=== PATIENT | female | born 1995 | race Caucasian/White ===

== ENCOUNTER → 2022-03-13 10:45 | Observation (INO) ==
[2022-03-13 09:54] LABS: Bilirubin,Urine Negative (Negative); Blood,Urine Negative (Negative); Clarity,Urine Clear (Clear); Color,Urine Colorless (Yellow); Glucose,Urine (UA) Normal (Normal); Ketones,Urine Negative (Negative); Leukocyte Esterase,Urine Negative (Negative); Nitrite,Urine Negative (Negative); Protein,Urine Negative (Neg-Trace); Specific Gravity,Urine 1.008 (1.010-1.025); Urobilinogen,Urine Normal (Normal)
[2022-03-13 09:56] VITALS: BP 132/74; PULSE 99; TEMP 98.4
[2022-03-13 10:00] LABS: Basophils % 0.3 %; Eosinophils # 0.3 K/mcL (0.0-0.6); Eosinophils % 3.1 %; Hematocrit 35.5 % (35.3-44.9); Immature Granulocytes % 0.8 % (0-4); Lymphocytes # 1.8 K/mcL (0.6-4.6); Lymphocytes % 19.8 %; Mean Corpuscular HGB Conc 33.8 g/dL (31.6-35.5); Mean Corpuscular Hemoglobin 30.8 pg (28.0-33.3); Mean Corpuscular Volume 91.3 fL (83.0-100.0); Mean Platelet Volume 12.2 fL (9.4-12.4); Monocytes # 0.9 K/mcL (0.0-1.3); Monocytes % 9.7 %; Neutrophils # 5.9 K/mcL (1.6-8.9); Platelet Count 244 K/mcL (140-400); Red Blood Count 3.89 M/mcL (3.82-4.97); Red Cell Distribution Width 13.1 % (11.5-14.5); Segmented Neutrophils % 66.3 %; White Blood Count 8.8 K/mcL (4.3-11.1)
[2022-03-13 10:06] LABS: Protein/Creatinine Ratio,Urine 0.18 mg/mg (0.00-0.20)
[2022-03-13 10:17] LABS: Alanine Aminotransferase 17 Units/L (7-52); Aspartate Amino Transferase 15 Units/L (13-39); BUN/Creatinine Ratio 13 (6-26); Blood Urea Nitrogen 7 mg/dL (6-20); Lactate Dehydrogenase 141 Units/L (140-271); Uric Acid 3.9 mg/dL (2.3-7.6); eGFR For African Americans > 60 (> 60); eGFR For Non-African Americans > 60 (> 60)
== END | disposition home or self-care (01) ==
LOC: 1NENULAB
PROVIDERS: ADMIT Obstetrics & Gynecology; ATTEND Obstetrics & Gynecology

== ENCOUNTER 2022-05-04 15:31 | Inpatient (IN) ==
[2022-05-04] MEDS ORDERED: Azithromycin 500 MG in 0.9 % Sodium Chloride 250 ML IVPB PRN (15:32)
[2022-05-04] MEDS ORDERED: Metoclopramide 10 MG/2 ML VIAL IVP PRN (15:32)
[2022-05-04] MEDS ORDERED: Lidocaine 1% 20 ML MDV INFILT PRN (15:32)
[2022-05-04] MEDS ORDERED: Naloxone 0.4 MG/ML INJ IVP PRN (15:32)
[2022-05-04] MEDS ORDERED: Famotidine 20 MG/2 ML VIAL IVP PRN (15:32)
[2022-05-04] MEDS ORDERED: Ondansetron 4 MG/2 ML VIAL IVP PRN (15:32)
[2022-05-04] MEDS ORDERED: *HR* Nalbuphine 10 MG/ML AMPUL IV PRN (15:32)
[2022-05-04 15:59] LABS: Amphetamine Screen,Urine Negative ng/mL (Cutoff=1000); Barbiturate Screen,Urine Negative ng/mL (Cutoff=200); Benzodiazepines Screen,Urine Negative ng/mL (Cutoff=200); Cannabinoid Screen,Urine Negative ng/mL (Cutoff = 50); Cocaine Screen,Urine Negative ng/mL (Cutoff= 300); Opiate Screen,Urine Negative ng/mL (Cutoff=300); Phencyclidine Screen,Urine Negative ng/mL (Cutoff=25)
[2022-05-04 16:04] LABS: Creatinine,Urine 27 mg/dL
[2022-05-04] MEDS: Ringers Solution, Lactated 1,000 ML IVC SCH ×2 (16:05→18:35)
[2022-05-04 16:09] LABS: Alanine Aminotransferase 22 Units/L (7-52); Aspartate Amino Transferase 19 Units/L (13-39); BUN/Creatinine Ratio 13 (6-26); Blood Urea Nitrogen 9 mg/dL (6-20); Lactate Dehydrogenase 151 Units/L (140-271); Uric Acid 5.1 mg/dL (2.3-7.6); eGFR For African Americans > 60 (> 60); eGFR For Non-African Americans > 60 (> 60)
[2022-05-04] MEDS ORDERED: Penicillin G Potassium 5,000,000 UNIT in 0.9 % Sodium Chloride Mini Bag 100 ML IVPB ONE (16:11)
[2022-05-04 16:16] LABS: Basophils % 0.2 %; Eosinophils # 0.2 K/mcL (0.0-0.6); Eosinophils % 2.1 %; Hematocrit 36.9 % (35.3-44.9); Hemoglobin 12.2 g/dL (11.5-15.4); Immature Granulocytes % 0.5 % (0-4); Immature Platelets 19.5 % (1.1-6.1); Lymphocytes # 1.8 K/mcL (0.6-4.6); Lymphocytes % 19.8 %; Mean Corpuscular HGB Conc 33.1 g/dL (31.6-35.5); Mean Corpuscular Hemoglobin 29.6 pg (28.0-33.3); Mean Corpuscular Volume 89.6 fL (83.0-100.0); Mean Platelet Volume 13.4 fL (9.4-12.4); Monocytes % 11.4 %; Platelet Count 204 K/mcL (140-400); Red Blood Count 4.12 M/mcL (3.82-4.97); Red Cell Distribution Width 13.3 % (11.5-14.5); White Blood Count 9.1 K/mcL (4.3-11.1)
[2022-05-04] MEDS: miSOPROStoL 25 MCG TABLET PO SCH ×2 (18:35→22:45)
[2022-05-04] MEDS: Penicillin G Potassium 2,500,000 UNIT/105 ML MLS IVPB SCH (20:35)
[2022-05-05] MEDS: Penicillin G Potassium 2,500,000 UNIT/105 ML MLS IVPB SCH ×4 (00:59→13:00)
[2022-05-05] MEDS: Oxytocin 30 UNIT/503 ML BAG IVC SCH ×2 (04:57→15:12)
[2022-05-05] MEDS ORDERED: EPHEDrine 50 MG/ML VIAL IVP PRN (07:39)
[2022-05-05] MEDS ORDERED: Epidural Premix (fent/bupiv) 110 ML EP SCH (07:45)
[2022-05-05] MEDS: Ringers Solution, Lactated 1,000 ML IVC SCH (08:43)
[2022-05-05] MEDS ORDERED: Ondansetron ODT 4 MG TAB.RAPDIS SL PRN (16:41)
[2022-05-05] MEDS ORDERED: Oxytocin 30 UNIT/503 ML BAG IVC SCH (16:41)
[2022-05-05] MEDS ORDERED: Lanolin 7 G OINT...G. TP PRN (16:41)
[2022-05-05] MEDS ORDERED: OXYTOCIN/RINGERS LACTATE 10 UNIT/166.6 ML BAG IVC ONE (16:41)
[2022-05-05] MEDS ORDERED: Benzocaine/Menthol 56 GM AEROSOL SPRAY TP PRN (16:41)
[2022-05-05 17:26] VITALS: O2SAT 97
[2022-05-05] MEDS: Acetaminophen 325 MG TABLET PO SCH (21:50)
[2022-05-05] MEDS: Ibuprofen 600 MG TABLET PO SCH (21:50)
[2022-05-06] MEDS: Ibuprofen 600 MG TABLET PO SCH ×2 (05:17→11:42)
[2022-05-06] MEDS: Acetaminophen 325 MG TABLET PO SCH ×2 (05:18→11:42)
[2022-05-06 07:32] VITALS: BP 117/80; PULSE 112; TEMP 97.5
[2022-05-06] MEDS ORDERED: Prenatal Vit/FA 1 EACH TABLET PO SCH (09:00)
== END 2022-05-06 16:00 | disposition home or self-care (01) | DRG 807 ==
LOC: 1NENULAB → 1NENUOBS 05-05 17:30
PROVIDERS: ADMIT Student in an Organized Health Care Education/Training Program; ATTEND Student in an Organized Health Care Education/Training Program